=== PATIENT | male | born 1945 | race Caucasian/White ===

== ENCOUNTER → 2018-04-01 | Outpatient (CLI) | payer MEDICARE, OTHER | END | disposition home or self-care (01) | LOC: CDC 14:50 | DX: Z01.810 Encounter for preprocedural cardiovascular examination (principal); I65.29 Occlusion and stenosis of unspecified carotid artery | CPT/HCPCS: 93000 ==

== ENCOUNTER 2018-04-14 20:20 | Inpatient (IN) | payer OTHER ==
[~2018-04-14] VITALS: Ht 190.5 cm; Wt 115.0 kg
[~2018-04-14 20:20] MED LIST: ACTOS45 MG PO; ASPIR 8181 M1 PO; CLARITIN10 M3 PO; JANUVIA100 MG PO; LEVEMIR FL100 UNIT/1 SC; LIPITOR40 MG PO; METFORMIN HCL500 MG PO; MULTI VITAMIN1 EACH PO; NEURONTIN600 MG PO; NORVASC5 MG PO; ZOLOFT50 MG PO
[2018-04-15 06:07] VITALS: BP 174/84
[2018-04-15] MEDS ORDERED: HYDROCODON-ACE1 EAC7 PO (10:16)
[2018-04-15 19:29] VITALS: BP 139/67
[2018-04-15 22:54] VITALS: BP 144/71
[2018-04-16 05:10] VITALS: BP 154/77
[2018-04-16 07:07] VITALS: BP 146/67
== END 2018-04-16 11:18 | disposition home or self-care (01) | DRG 39 ==
LOC: CANRESERV 20:20 → ENRESERV 20:20 → 2SOUTH 04-15 05:43 → ENRESERV 04-15 17:11 → 4EAST 04-15 19:06
PROVIDERS: Surgery
PROC: 03CL0ZZ Extirpation of Matter from Left Internal Carotid Artery, Open Approach (ICD-10-PCS; principal; 2018-04-15)
DX: I65.23 Occlusion and stenosis of bilateral carotid arteries (principal); E11.9 Type 2 diabetes mellitus without complications; I10 Essential (primary) hypertension; E78.00 Pure hypercholesterolemia, unspecified; N40.0 Benign prostatic hyperplasia without lower urinary tract symptoms; Z87.891 Personal history of nicotine dependence; Z82.3 Family history of stroke; Z79.82 Long term (current) use of aspirin; Z79.84 Long term (current) use of oral hypoglycemic drugs
CPT/HCPCS: 82948; 93005; C1768; J1644; J1650; J1815; J2250; J2405; J2720; J2765; J2795; J3010; J7120